=== PATIENT | female | born 1990 | race American Indian/Alaskan Native ===

== ENCOUNTER 2018-01-19 20:45 | Emergency (ER) | payer OTHER ==
[2018-01-19 21:51] LABS: Basophils % (Auto) 0.4 % (0.0-1.8); Eosinophils # (Auto) 0.2 K/mm3 (0.0-0.4); Eosinophils % (Auto) 2.3 % (0.0-4.3); Hematocrit 31.6 % (30.3-42.9); Lymphocytes # (Auto) 2.3 K/mm3 (1.2-5.4); Lymphocytes % (Auto) 22.7 % (13.4-35.0); Mean Corpuscular HGB Conc 35 % (30-34); Mean Corpuscular Volume 71 fl (79-97); Monocytes # (Auto) 0.7 K/mm3 (0.0-0.8); Monocytes % (Auto) 6.7 % (0.0-7.3); Platelet Count 180 K/mm3 (140-440); Red Blood Count 4.47 M/mm3 (3.65-5.03); Red Cell Distribution Width 15.1 % (13.2-15.2)
[2018-01-19 21:53] LABS: Mean Corpuscular Hemoglobin 25 pg (28-32)
[2018-01-19 22:20] LABS: Alanine Aminotransferase 7 units/L (7-56); Albumin 3.9 g/dL (3.9-5); BUN/Creatinine Ratio 13; Blood Urea Nitrogen 9 mg/dL (7-17); Calcium 8.8 mg/dL (8.4-10.2); Hemolysis Index 5
[2018-01-19 23:42] LABS: Bacteria,Urine 1+ /HPF (Negative); Bilirubin,Urine NEG (Negative); Blood,Urine NEG (Negative); Color,Urine Yellow (Yellow); Mucus,Urine FEW /HPF
--- NOTE | 2018-01-20 01:39 | Ultrasound Report ---
FINAL REPORT EXAM: US OB < = 14 WEEKS FETUS HISTORY: abd pain TECHNIQUE: Transabdominal imaging was obtained of the pelvis. Doppler interrogation of the uterus was also obtained. FINDINGS: The uterus is anteverted measuring 14 cm x 9 cm x 8 cm. Within the uterus is a well-formed gestational sac containing an embryo with a crown-rump length of 77.4 mm. This corresponds to a 13 week 5 day IUP. The heart rate is 163 BPM. There is no evidence of subchorionic hemorrhage. Free fluid is not seen in the pelvis. The right ovary is appropriate size contour and echotexture measuring 3.5 cm x 1.9 cm x 2.1 cm. The left ovary measures 3.6 cm x 2.2 cm x 3.2 cm. There is a complex cyst in left ovary measuring up to 2.7 cm in diameter. IMPRESSION: Single viable IUP, 13 weeks 5 days. The heart rate is 163 BPM. Complex cyst in left ovary measuring 2.7 cm in diameter most likely representing corpus luteum cyst.
--- NOTE | 2018-01-20 02:26 | Emergency Department Report ---
ED Abdominal Pain HPI - General Chief Complaint: Abdominal Pain Stated Complaint: 3MNTS ABDOMINAL PAIN Time Seen by Provider: 01/20/18 02:24 Source: patient Mode of arrival: Ambulatory Limitations: No Limitations - History of Present Illness Initial Comments: 27-year-old presents to the hospital with her fourth complaining of sudden onset of suprapubic abdominal pain feels like contractions since last night. Pain was described as 6/10 in intensity, stabbing and cramping and worse with palpation. Pain has eased up some but still present. Patient noticed pink vaginal spotting that resolved spontaneously. Patient had ongoing nausea vomiting during this but symptoms improved with Zofran intake. 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 She denies dysuria or fevers. Her blood type is unknown. [facility]: [facility] - Related Data Previous Rx's Medication Instructions Recorded Last Taken Type Sulfamethoxazole/Trimethoprim 1 each PO BID #10 tablet 03/22/15 Unknown Rx [Bactrim DS TAB] Nitrofurantoin Monohyd/M-Cryst 100 mg PO BID #14 capsule 01/20/18 Unknown Rx [Macrobid 100 mg Capsule] Allergies Allergy/AdvReac Type Severity Reaction Status Date / Time No Known Allergies Allergy Unverified 03/22/15 17:18 ED Review of Systems ROS: Stated complaint: 3MNTS ABDOMINAL PAIN Other details as noted in HPI Comment: All other systems reviewed and negative ED Past Medical Hx - Past Medical History Previous Medical History?: No - Surgical History Past Surgical History?: No - Social History Smoking Status: Former Smoker Substance Use Type: None - Medications Home Medications: Home Medications Medication Instructions Recorded Confirmed Last Taken Type Sulfamethoxazole/Trimethoprim 1 each PO BID #10 tablet 03/22/15 Unknown Rx [Bactrim DS TAB] Nitrofurantoin Monohyd/M-Cryst 100 mg PO BID #14 capsule 01/20/18 Unknown Rx [Macrobid 100 mg Capsule] ED Physical Exam - General Limitations: No Limitations - Other Other exam information: General: No limitations, patient is alert in no acute distress Head exam: Atraumatic, normocephalic Eyes exam: Normal appearance ENT: Moist mucous membrane, normal oropharynx Neck exam: Normal inspection, full range of motion, no meningismus nontender Respiratory exam: Clear to auscultation bilateral, no wheezes, rales, crackles Cardiovascular: Normal rate and rhythm, normal heart sounds Abdomen: Soft, nondistended, superpubic tenderness, with normal bowel sounds, no rebound, or guarding Extremity: Full range of motion normal inspection no deformity Back: Normal Inspection, full range of motion, no tenderness Neurologic: Alert, oriented x3, cranial nerves intact, no motor or sensory deficit Psychiatric: normal affect, normal mood Skin: Warm, dry, intact ED Course Vital Signs 01/19/18 01/20/18 21:10 03:29 Temperature 98.3 F Pulse Rate 78 71 Respiratory 14 18 Rate Blood Pressure 123/73 Blood Pressure 116/70 [Right] O2 Sat by Pulse 100 100 Oximetry ED Medical Decision Making - Lab Data Result diagrams: 01/19/18 21:30 01/19/18 21:30 Lab Results 01/19/18 01/19/18 01/19/18 Range/Units 21:30 21:30 21:30 WBC 10.2 (4.5-11.0) K/mm3 RBC 4.47 (3.65-5.03) M/mm3 Hgb 11.0 (10.1-14.3) gm/dl Hct 31.6 (30.3-42.9) % MCV 71 L (79-97) fl MCH 25 L (28-32) pg MCHC 35 H (30-34) % RDW 15.1 (13.2-15.2) % Plt Count 180 (140-440) K/mm3 Lymph % (Auto) 22.7 (13.4-35.0) % [place] % (Auto) 6.7 (0.0-7.3) % Eos % (Auto) 2.3 (0.0-4.3) % Baso % (Auto) 0.4 (0.0-1.8) % Lymph # 2.3 (1.2-5.4) K/mm3 [place] # 0.7 (0.0-0.8) K/mm3 Eos # 0.2 (0.0-0.4) K/mm3 Baso # 0.0 (0.0-0.1) K/mm3 Seg Neutrophils % 67.9 (40.0-70.0) % Seg Neutrophils # 6.9 (1.8-7.7) K/mm3 Sodium 138 (137-145) mmol/L Potassium 4.0 (3.6-5.0) mmol/L Chloride 104.0 (98-107) mmol/L Carbon Dioxide 23 (22-30) mmol/L Anion Gap 15 mmol/L BUN 9 (7-17) mg/dL Creatinine 0.7 (0.7-1.2) mg/dL Estimated GFR > 60 ml/min BUN/Creatinine Ratio 13 % Glucose 98 (65-100) mg/dL Calcium 8.8 (8.4-10.2) mg/dL Total Bilirubin 0.30 (0.1-1.2) mg/dL AST 19 (5-40) units/L ALT 7 (7-56) units/L Alkaline Phosphatase 33 L (35-129) units/L Total Protein 6.4 (6.3-8.2) g/dL Albumin 3.9 (3.9-5) g/dL Albumin/Globulin Ratio 1.6 % HCG, Quant 60042 H (0-4) mIU/mL Urine Color (Yellow) Urine Turbidity (Clear) Urine pH (5.0-7.0) Ur Specific [place] (1.003-1.030) Urine Protein (Negative) mg/dL Urine Glucose (UA) (Negative) mg/dL Urine Ketones (Negative) mg/dL Urine Blood (Negative) Urine Nitrite (Negative) Urine Bilirubin (Negative) Urine Urobilinogen (<2.0) mg/dL Ur Leukocyte Esterase (Negative) Urine WBC (Auto) (0.0-6.0) /HPF Urine RBC (Auto) (0.0-6.0) /HPF U Epithel Cells (Auto) (0-13.0) /HPF Urine Bacteria (Auto) (Negative) /HPF Urine Mucus /HPF Blood Type 01/19/18 01/20/18 Range/Units 22:23 02:58 WBC (4.5-11.0) K/mm3 RBC (3.65-5.03) M/mm3 Hgb (10.1-14.3) gm/dl Hct (30.3-42.9) % MCV (79-97) fl MCH (28-32) pg MCHC (30-34) % RDW (13.2-15.2) % Plt Count (140-440) K/mm3 Lymph % (Auto) (13.4-35.0) % [place] % (Auto) (0.0-7.3) % Eos % (Auto) (0.0-4.3) % Baso % (Auto) (0.0-1.8) % Lymph # (1.2-5.4) K/mm3 [place] # (0.0-0.8) K/mm3 Eos # (0.0-0.4) K/mm3 Baso # (0.0-0.1) K/mm3 Seg Neutrophils % (40.0-70.0) % Seg Neutrophils # (1.8-7.7) K/mm3 Sodium (137-145) mmol/L Potassium (3.6-5.0) mmol/L Chloride (98-107) mmol/L Carbon Dioxide (22-30) mmol/L Anion Gap mmol/L BUN (7-17) mg/dL Creatinine (0.7-1.2) mg/dL Estimated GFR ml/min BUN/Creatinine Ratio % Glucose (65-100) mg/dL Calcium (8.4-10.2) mg/dL Total Bilirubin (0.1-1.2) mg/dL AST (5-40) units/L ALT (7-56) units/L Alkaline Phosphatase (35-129) units/L Total Protein (6.3-8.2) g/dL Albumin (3.9-5) g/dL Albumin/Globulin Ratio % HCG, Quant (0-4) mIU/mL Urine Color Yellow (Yellow) Urine Turbidity Cloudy (Clear) Urine pH 6.0 (5.0-7.0) Ur Specific [place] 1.024 (1.003-1.030) Urine Protein 30 mg/dl (Negative) mg/dL Urine Glucose (UA) Neg (Negative) mg/dL Urine Ketones Neg (Negative) mg/dL Urine Blood Neg (Negative) Urine Nitrite Neg (Negative) Urine Bilirubin Neg (Negative) Urine Urobilinogen 2.0 (<2.0) mg/dL Ur Leukocyte Esterase Sm (Negative) Urine WBC (Auto) 18.0 H (0.0-6.0) /HPF Urine RBC (Auto) 4.0 (0.0-6.0) /HPF U Epithel Cells (Auto) 15.0 H (0-13.0) /HPF Urine Bacteria (Auto) 1+ (Negative) /HPF Urine Mucus Few /HPF Blood Type A POSITIVE - Radiology Data Radiology results: report reviewed FINAL REPORT EXAM: US OB lt; = 14 WEEKS FETUS HISTORY: abd pain TECHNIQUE: Transabdominal imaging was obtained of the pelvis. Doppler interrogation of the uterus was also obtained. FINDINGS: The uterus is anteverted measuring 14 cm x 9 cm x 8 cm. Within the uterus is a well-formed gestational sac containing an embryo with a crown-rump length of 77.4 mm. This corresponds to a 13 week 5 day IUP. The heart rate is 163 BPM. There is no evidence of subchorionic hemorrhage. Free fluid is not seen in the pelvis. The right ovary is appropriate size contour and echotexture measuring 3.5 cm x 1.9 cm x 2.1 cm. The left ovary measures 3.6 cm x 2.2 cm x 3.2 cm. There is a complex cyst in left ovary measuring up to 2.7 cm in diameter. IMPRESSION: Single viable IUP, 13 weeks 5 days. The heart rate is 163 BPM. Complex cyst in left ovary measuring 2.7 cm in diameter most likely representing corpus luteum cyst. - Medical Decision Making Suprapubic cramps pt feeling better Ultrasound shows normal progression of with IUP UA reveals white cells with epithelial cells patient will be treated. Received Rocephin in the ED Patient reports pink spotting that resolved. She is Rh+ and does not require RhoGAM Nausea vomiting throughout Patient received 1 L of normal saline in the ED - Differential Diagnosis dehydration, UTI, miscarriage, threatened miscarriage Critical Care Time: No Critical care attestation.: If time is entered above; I have spent that time in minutes in the direct care of this critically ill patient, excluding procedure time. ED Disposition Clinical Impression: 13 weeks gestation of , Pelvic cramping, UTI (urinary tract infection) , Nausea and vomiting during , Blood type A+ Disposition: DC-01 TO HOME OR SELFCARE Is pt being admited?: No Does the pt Need Aspirin: No Condition: Stable Instructions: (ED), Urinary Tract Infection in Women (ED) Additional Instructions: Take the medication as prescribed. Follow up with your doctor. Return if symptoms worsen as indicated by your discharge instructions. Take Tylenol as needed for pain. Prescriptions: Nitrofurantoin Monohyd/M-Cryst [Macrobid 100 mg Capsule] 100 mg PO BID #14 capsule Referrals: [facility] [Provider Group] - 2-3 Days Time of Disposition: 04:31
[2018-01-20] MEDS ORDERED: NACL 0.9% 1000 ML 1,000 ML IV ONE (02:48)
[2018-01-20] MEDS ORDERED: ROCEPHIN/NS 1 GM/50 ML 1 GM/50 ML BAG IV ONE (02:48)
[2018-01-20] MEDS ORDERED: TYLENOL ONE (03:09)
[2018-01-20 03:29] VITALS: BP 116/70
[2018-01-20] MEDS ORDERED: TYLENOL PO ONE (06:50)
== END 2018-01-20 04:56 | disposition home or self-care (01) ==
LOC: ED 20:45
DX: O23.41 Unspecified infection of urinary tract in pregnancy, first trimester (principal); Z3A.13 13 weeks gestation of pregnancy; Z87.891 Personal history of nicotine dependence
CPT/HCPCS: 36415; 76801; 80053; 81001; 84702; 85025; 86850; 86900; 86901; 96365; 99284; J0696; J7030

== ENCOUNTER 2018-06-06 20:58 | Inpatient (IN) | payer OTHER ==
[2018-06-06] MEDS ORDERED: LACTATED RINGERS 1,000 ML IV ONE (21:31)
[2018-06-06 22:15] LABS: Bilirubin,Urine NEG (Negative); Blood,Urine NEG (Negative); Color,Urine Yellow (Yellow); Mucus,Urine FEW /HPF; Protein,Urine <15 mg/dL mg/dL (Negative); Urobilinogen,Urine < 2.0 mg/dL (<2.0)
[2018-06-07 01:14] LABS: Basophils % (Auto) 0.3 % (0.0-1.8); Eosinophils # (Auto) 0.2 K/mm3 (0.0-0.4); Eosinophils % (Auto) 1.7 % (0.0-4.3); Hematocrit 29.2 % (30.3-42.9); Hemoglobin 9.5 gm/dl (10.1-14.3); Lymphocytes # (Auto) 2.4 K/mm3 (1.2-5.4); Lymphocytes % (Auto) 21.5 % (13.4-35.0); Mean Corpuscular HGB Conc 32 % (30-34); Mean Corpuscular Volume 70 fl (79-97); Monocytes % (Auto) 9.1 % (0.0-7.3); Platelet Count 176 K/mm3 (140-440); Red Blood Count 4.16 M/mm3 (3.65-5.03); Red Cell Distribution Width 13.8 % (13.2-15.2)
[2018-06-07] MEDS ORDERED: TYLENOL PO PRN (02:06)
[2018-06-07] MEDS: LACTATED RINGERS 1,000 ML IV SCH ×3 (02:27→18:33)
[2018-06-07] MEDS: DECADRON IM SCH ×2 (02:27→09:01)
[2018-06-07] MEDS ORDERED: COLACE PO PRN (10:17)
[2018-06-07] MEDS ORDERED: MAGNESIUM SULFATE 4GM/100ML 4 GM/100 ML BAG IV ONE (10:22)
--- NOTE | 2018-06-07 10:27 | History and Physical Report ---
History of Present Illness Date of examination: 06/07/18 Date of admission: 06/07/18 02:05 Chief complaint: SIUP at 32 weeks gestation with labor. History of present illness: Patient is a 27 year old , LMP 10/21/17, EDC 07/28/18 at 32 weeks and 5 days gestation who presented to triage last night complaining of having contractions. She denied any fluid leakage or bleeding. She reports good movement. She has a history of deliveries at 23 weeks and 35 weeks. She is co-managed with [facility]. tracing is CAT1. Dexa for FLM was started during the night. IV hydration was given. Her contractions later stopped. 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 History: abnormal PAP smear Family/Genetic History: none Social history: no significant social history - Obstetrical History Expected Date of Delivery: 07/28/18 Actual Gestation: 32 Week(s) 5 Day(s) : 3 Para: 2 Hx # Term Pregnancies: 0 Number of Pregnancies: 2 Number of Living Children: 2 Medications and Allergies Allergies Allergy/AdvReac Type Severity Reaction Status Date / Time No Known Allergies Allergy Unverified 03/22/15 17:18 Home Medications Medication Instructions Recorded Confirmed Last Taken Type Vit,Calc76/Iron/Folic 1 each PO DAILY 06/06/18 06/06/18 06/06/18 History [Pnv 29-1 Tablet] Active Meds: Active Medications Acetaminophen (Tylenol) 650 mg PO Q6H PRN PRN Reason: Pain, Mild (1-3) Last Admin: 06/07/18 02:26 Dose: 650 mg Documented by: Acetaminophen (Tylenol) 650 mg PO Q4H PRN PRN Reason: Pain MILD(1-3)/Fever >100.5/HUGGINS Dexamethasone (Decadron) 6 mg IM Q12H DOROTEO Stop: 06/08/18 13:01 Last Admin: 06/07/18 09:01 Dose: 6 mg Documented by: Docusate Sodium (Colace) 100 mg PO Q12H PRN PRN Reason: Constipation Lactated Ringer's (Lactated Ringers) 1,000 mls @ 125 mls/hr IV DIRECT DOROTEO Last Admin: 06/07/18 02:27 Dose: 125 mls/hr Documented by: Ampicillin Sodium (Ampicillin/Ns 1 Gm/50 Ml) 1 gm in 50 mls @ 100 mls/hr IV Q4HR DOROTEO; Protocol Magnesium Sulfate (Magnesium Sulfate 40gm/1000ml) 40 gm in 1,000 mls @ 50 mls/hr IV DIRECT DOROTEO Magnesium Sulfate (Magnesium Sulfate 4gm/100ml) 4 gm in 100 mls @ 300 mls/hr IV ONCE ONE Stop: 06/07/18 10:41 Multivitamins/Iron/Calcium ( Vitamin) 1 each PO QDAY DOROTEO - Vital Signs Vital signs: Vital Signs Pulse Pulse Ox 87 100 06/06/18 21:19 06/06/18 21:19 Temp Pulse Resp BP Pulse Ox 98.7 F 93 H 17 128/84 98 06/07/18 09:08 06/07/18 09:08 06/07/18 09:08 06/07/18 09:08 06/07/18 09:08 - Physical Exam Cardiovascular: Normal S1, Normal S2 Lungs: Positive: Clear to auscultation Vulva: both: normal Adnexa: both: normal Deep Tendon Reflex Grade: Normal +2 - Obstetrical FHR: category 1 Uterine Contraction Monitor Mode: External Cervical Dilatation: 3 Cervical Effacement Percentage: 50 station: -3 Uterine Contraction Pattern: Absent Results Result Diagrams: 06/07/18 12:51 Abnormal lab results 06/07/18 Range/Units 00:39 Hgb 9.5 L (10.1-14.3) gm/dl Hct 29.2 L (30.3-42.9) % MCV 70 L (79-97) fl MCH 23 L (28-32) pg [place] % (Auto) 9.1 H (0.0-7.3) % [place] # 1.0 H (0.0-0.8) K/mm3 All other labs normal. Assessment and Plan - Patient Problems (1) 32 weeks gestation of Current Visit: Yes Status: Acute (2) labor Current Visit: Yes Status: Acute Plan to address problem: Admit to labor floor. Routine admitting labs. IV hydration. and toco monitoring. Magnesium sulfate for neuroprotection. Steroids for FLM. IV antibiotics for GBS prophylaxis. Sonogram for BPP, ARGENIS, EFW. NICU and [facility] consult.
[2018-06-07] MEDS ORDERED: AMPICILLIN/NS 2 GM/100 ML 2 GM/100 ML BAG IV ONE (11:11)
[2018-06-07] MEDS: MAGNESIUM SULFATE 40GM/1000ML 40 GM/1,000 ML BAG IV SCH (11:40)
[2018-06-07] MEDS: PROCARDIA*For Tocolysis only PO SCH ×2 (12:00→18:19)
[2018-06-07 13:26] LABS: Hematocrit 29.2 % (30.3-42.9); Hemoglobin 9.6 gm/dl (10.1-14.3); Mean Corpuscular HGB Conc 33 % (30-34); Platelet Count 195 K/mm3 (140-440); Red Blood Count 4.22 M/mm3 (3.65-5.03); Red Cell Distribution Width 13.6 % (13.2-15.2)
[2018-06-07 13:27] LABS: Mean Corpuscular Volume 69 fl (79-97)
[2018-06-07 14:45] LABS: Basophils % (Manual) 0 % (0.0-1.8); Eosinophils % (Manual) 0 % (0.0-4.3); Monocytes % (Manual) 0 % (0.0-7.3); Total Cells Counted 100
[2018-06-07 14:46] LABS: Anisocytosis 1+; Platelet Estimate Consistent w Auto; Poikilocytosis 1+; Target Cells Few
--- NOTE | 2018-06-07 14:51 | Ultrasound Report ---
ULTRASOUND BIOPHYSICAL PROFILE: History: labor Technique: Transabdominal ultrasound with Doppler interrogation. 2 - breathing movements 2 - movements 2 - posture and tone 2 - Qualitative amniotic fluid volume 8 - TOTAL SCORE OF POSSIBLE 8 Heart Rate (bpm) 124
--- NOTE | 2018-06-07 14:53 | Ultrasound Report ---
OB ULTRASOUND History labor. Technique: Transabdominal ultrasound with Doppler interrogation. Gestation: Single Position: Cephalic Amniotic Fluid: Normal ARGENIS = 14.7 cm Heart Rate: 120 BPM BPD: 8.2 cm = 32 w 6 d HC: 29.6 cm = 32 w 5 d AC: 27.0 cm = 31 w 0 d FL: 6.5 cm = 33 w 4 d HC/AC Ratio: 1.10 Cephalic Index: 89.3 Estimated Weight: 1914 grams Clinical age = 32 w 5 d EDC: 07/28/18 US Gest. Age = 32 w 4 d EDC: 07/29/18 IMPRESSION: Viable, single intrauterine as described.
[2018-06-07] MEDS: TYLENOL PO PRN ×2 (18:17→22:09)
[2018-06-07] MEDS: AMPICILLIN/NS 1 GM/50 ML 1 GM/50 ML BAG IV SCH (18:24)
[2018-06-07 19:29] LABS: Bacteria,Urine 1+ /HPF (Negative); Bilirubin,Urine NEG (Negative); Blood,Urine SM (Negative); Color,Urine Colorless (Yellow); Protein,Urine <15 mg/dL mg/dL (Negative); Urobilinogen,Urine < 2.0 mg/dL (<2.0); WBC,Urine < 1.0 /HPF (0.0-6.0)
[2018-06-08] MEDS: MAGNESIUM SULFATE 40GM/1000ML 40 GM/1,000 ML BAG IV SCH (02:09)
[2018-06-08] MEDS: DECADRON IM SCH ×2 (02:10→14:10)
[2018-06-08] MEDS: AMPICILLIN/NS 1 GM/50 ML 1 GM/50 ML BAG IV SCH ×5 (03:53→22:10)
[2018-06-08] MEDS: PROCARDIA*For Tocolysis only PO SCH ×3 (06:41→22:09)
[2018-06-08] MEDS: PRENATAL VITAMIN PO SCH (09:46)
--- NOTE | 2018-06-08 10:03 | Progress Note ---
Assessment and Plan - Patient Problems (1) 32 weeks gestation of Current Visit: Yes Status: Acute (2) labor Current Visit: Yes Status: Acute Plan to address problem: IV hydration. and toco monitoring. Magnesium sulfate for neuroprotection. Steroids for FLM. IV antibiotics for GBS prophylaxis. NICU and [facility] consult. Subjective - Subjective Date of service: 06/08/18 Principal diagnosis: SIUP at 32 weeks gestation with pretrm labor. Interval history: Patient is a 27 year old , LMP 10/21/17, EDC 07/28/18 at 32 weeks and 6 days gestation who was admitted yesterdasy for labor. She denied any fluid leakage or bleeding. She reports good movement. She has a history of deliveries at 23 weeks and 35 weeks. She is co- managed with [facility]. tracing is CAT1. Dexa for FLM in progress. Magnesium sulfate for neuroprotection, IV antibiotics for GBS prophylaxis. Sonogram showed normal ARGENIS, VTX presentation. Objective - Vital Signs Vital Signs: Vital Signs - 12hr 06/08/18 06/08/18 06/08/18 01:34 04:26 04:27 Temperature 98.3 F Pulse Rate 97 H 97 H Respiratory 18 Rate Blood Pressure 120/73 107/65 - Exam Cardiovascular: Normal S1, Normal S2 Lungs: Clear to auscultation Vulva: both: normal FHR: category 1 Uterine Contraction Monitor Mode: External Uterine Contraction Pattern: Absent Deep Tendon Reflex Grade: Normal +2 - Labs Labs: Abnormal Labs 06/07/18 06/07/18 06/07/18 00:39 12:51 12:51 WBC 13.3 H Hgb 9.5 L 9.6 L Hct 29.2 L 29.2 L MCV 70 L 69 L MCH 23 L 23 L [place] % (Auto) 9.1 H [place] # 1.0 H Seg Neuts % (Manual) 94.0 H Lymphocytes % (Manual) 6.0 L Seg Neutrophils # Man 12.5 H Lymphocytes # (Manual) 0.8 L Magnesium 4.20 H 06/07/18 17:55 WBC Hgb Hct MCV MCH [place] % (Auto) [place] # Seg Neuts % (Manual) Lymphocytes % (Manual) Seg Neutrophils # Man Lymphocytes # (Manual) Magnesium 4.80 H Laboratory Results - last 24 hr 06/07/18 06/07/18 06/07/18 12:51 12:51 17:55 WBC 13.3 H RBC 4.22 Hgb 9.6 L Hct 29.2 L MCV 69 L MCH 23 L MCHC 33 RDW 13.6 Plt Count 195 Add Manual Diff Complete Total Counted 100 Seg Neutrophils % Children'S Counselor Seg Neuts % (Manual) 94.0 H Band Neutrophils % 0 Lymphocytes % (Manual) 6.0 L Reactive Lymphs % (Man) 0 Monocytes % (Manual) 0 Eosinophils % (Manual) 0 Basophils % (Manual) 0 Metamyelocytes % 0 Myelocytes % 0 Promyelocytes % 0 Blast Cells % 0 Nucleated RBC % Not Reportable Seg Neutrophils # Man 12.5 H Band Neutrophils # 0.0 Lymphocytes # (Manual) 0.8 L Abs React Lymphs (Man) 0.0 Monocytes # (Manual) 0.0 Eosinophils # (Manual) 0.0 Basophils # (Manual) 0.0 Metamyelocytes # 0.0 Myelocytes # 0.0 Promyelocytes # 0.0 Blast Cells # 0.0 WBC Morphology Not Reportable Hypersegmented Neuts Not Reportable Hyposegmented Neuts Not Reportable Hypogranular Neuts Not Reportable Smudge Cells Not Reportable Toxic Granulation Not Reportable Toxic Vacuolation Not Reportable Dohle Bodies Not Reportable Pelger-Huet Anomaly Not Reportable [place] Rods Not Reportable Platelet Estimate Consistent w auto Clumped Platelets Not Reportable Plt Clumps, EDTA Not Reportable Large Platelets Not Reportable Giant Platelets Not Reportable Platelet Satelliting Not Reportable Plt Morphology Comment Not Reportable RBC Morphology Not Reportable Dimorphic RBCs Not Reportable Polychromasia Not Reportable Hypochromasia Not Reportable Poikilocytosis 1+ Anisocytosis 1+ Microcytosis Not Reportable Macrocytosis Not Reportable Spherocytes Not Reportable Pappenheimer Bodies Not Reportable Sickle Cells Not Reportable Target Cells Few Tear Drop Cells Not Reportable Ovalocytes Not Reportable Helmet Cells Not Reportable Penaloza-Dundas Bodies Not Reportable [place] Rings Not Reportable [place] Cells Not Reportable Bite Cells Not Reportable Crenated Cell Not Reportable Elliptocytes Not Reportable Acanthocytes (Spur) Not Reportable Rouleaux Not Reportable Hemoglobin C Crystals Not Reportable Schistocytes Not Reportable Malaria parasites Not Reportable Pedro Bodies Not Reportable Hem Pathologist Commnt No Magnesium 4.20 H 4.80 H Urine Color Urine Turbidity Urine pH Ur Specific [place] Urine Protein Urine Glucose (UA) Urine Ketones Urine Blood Urine Nitrite Urine Bilirubin Urine Urobilinogen Ur Leukocyte Esterase Urine WBC (Auto) Urine RBC (Auto) U Epithel Cells (Auto) Urine Bacteria (Auto) 06/07/18 19:00 WBC RBC Hgb Hct MCV MCH MCHC RDW Plt Count Add Manual Diff Total Counted Seg Neutrophils % Seg Neuts % (Manual) Band Neutrophils % Lymphocytes % (Manual) Reactive Lymphs % (Man) Monocytes % (Manual) Eosinophils % (Manual) Basophils % (Manual) Metamyelocytes % Myelocytes % Promyelocytes % Blast Cells % Nucleated RBC % Seg Neutrophils # Man Band Neutrophils # Lymphocytes # (Manual) Abs React Lymphs (Man) Monocytes # (Manual) Eosinophils # (Manual) Basophils # (Manual) Metamyelocytes # Myelocytes # Promyelocytes # Blast Cells # WBC Morphology Hypersegmented Neuts Hyposegmented Neuts Hypogranular Neuts Smudge Cells Toxic Granulation Toxic Vacuolation Dohle Bodies Pelger-Huet Anomaly [place] Rods Platelet Estimate Clumped Platelets Plt Clumps, EDTA Large Platelets Giant Platelets Platelet Satelliting Plt Morphology Comment RBC Morphology Dimorphic RBCs Polychromasia Hypochromasia Poikilocytosis Anisocytosis Microcytosis Macrocytosis Spherocytes Pappenheimer Bodies Sickle Cells Target Cells Tear Drop Cells Ovalocytes Helmet Cells Penaloza-Dundas Bodies Gardner Rings Topaz Cells Bite Cells Crenated Cell Elliptocytes Acanthocytes (Spur) Rouleaux Hemoglobin C Crystals Schistocytes Malaria parasites Pedro Bodies Hem Pathologist Commnt Magnesium Urine Color Colorless Urine Turbidity Clear Urine pH 7.0 Ur Specific [place] 1.003 Urine Protein <15 mg/dl Urine Glucose (UA) 50 Urine Ketones 20 Urine Blood Sm Urine Nitrite Neg Urine Bilirubin Neg Urine Urobilinogen < 2.0 Ur Leukocyte Esterase Neg Urine WBC (Auto) < 1.0 Urine RBC (Auto) 2.0 U Epithel Cells (Auto) 1.0 Urine Bacteria (Auto) 1+ - Results US- obstetric: report reviewed
[2018-06-08] MEDS ORDERED: DECADRON ONE (15:57)
--- NOTE | 2018-06-08 17:18 | Consultation ---
History of Present Illness Consult date: 06/08/18 Requesting physician: CIELO JENSEN Reason for consult: contractions History of present illness: As you are aware, this is an 27 year old para 0211 patient at EGA= 32 weeks 6 days gestation (based on an LISSY of 07/28/18) who was admitted to the L&D at [facility] due to suspected labor. Patient was noted to have a vaginal exam at 2-3 cm and [facility]. She was noted to be dilated at the time of that evaluation. * She denies fever, nausea, vomiting, vaginal bleeding or fluid leakage per vagina. * She does describe mild intermittent episodes of abdominal discomfort consistent with possible contractions for approximately 2 weeks. At the time of my evaluation today the admitted to intermittent contractions. PAST OBSTERICAL HISTORY: See notes in patients chart. See details in patients chart [facility] ULTRASONOGRAPHY: o See notes in patients chart Physical Examination: See hospital chart for details Recent blood pressures: stable General exam: WDWN, NAD. Abdominal exam: soft, non-tender, non-distended, bowel sounds: normal. Cervical length: deferred (2-3 cm per last exam) [place]: Minimal contractions appreciated at present. Admission labs: o See notes in patients chart Past History Past Surgical History: [employer] History: abnormal PAP smear Family/Genetic History: none - Obstetrical History : 3 Medications and Allergies Allergies Allergy/AdvReac Type Severity Reaction Status Date / Time No Known Allergies Allergy Unverified 03/22/15 17:18 Home Medications Medication Instructions Recorded Confirmed Last Taken Type Vit,Calc76/Iron/Folic 1 each PO DAILY 06/06/18 06/06/18 06/06/18 History [Pnv 29-1 Tablet] Active Meds: Active Medications Acetaminophen (Tylenol) 650 mg PO Q4H PRN PRN Reason: Pain MILD(1-3)/Fever >100.5/HUGGINS Last Admin: 06/07/18 22:09 Dose: 650 mg Documented by: Docusate Sodium (Colace) 100 mg PO Q12H PRN PRN Reason: Constipation Lactated Ringer's (Lactated Ringers) 1,000 mls @ 125 mls/hr IV DIRECT DOROTEO Last Admin: 06/07/18 18:33 Dose: 125 mls/hr Documented by: Ampicillin Sodium (Ampicillin/Ns 1 Gm/50 Ml) 1 gm in 50 mls @ 100 mls/hr IV Q4HR [facility]; Protocol Last Admin: 06/08/18 14:15 Dose: 100 mls/hr Documented by: Magnesium Sulfate (Magnesium Sulfate 40gm/1000ml) 40 gm in 1,000 mls @ 50 mls/hr IV DIRECT [facility] Last Admin: 06/08/18 02:09 Dose: 2 gm/hr, 50 mls/hr Documented by: Multivitamins/Iron/Calcium ( Vitamin) 1 each PO QDAY [facility] Last Admin: 06/08/18 09:46 Dose: 1 each Documented by: Nifedipine (Procardia*For Tocolysis Only*) 10 mg PO Q6HR [facility] Last Admin: 06/08/18 12:33 Dose: Not Given Documented by: - Vital Signs Vital signs: Vital Signs Pulse Pulse Ox 87 100 06/06/18 21:19 06/06/18 21:19 Temp Pulse Resp BP Pulse Ox 98.7 F 90 18 123/79 97 06/08/18 10:10 06/08/18 10:22 06/08/18 10:10 06/08/18 10:22 06/08/18 10:10 Results Result Diagrams: 06/07/18 12:51 Abnormal lab results 06/07/18 06/08/18 Range/Units 17:55 10:45 Magnesium 4.80 H 4.70 H (1.7-2.3) mg/dL All other labs normal. Assessment and Plan ASSESSMENT: o Intrauterine at 32 weeks gestation admitted with contractions and cervical change o Currently, an analysis of this patients symptoms, tocodynametry, past history and stated symptoms place her at significant risk for spontaneous . RECOMMENDATIONS & CONSULTATION: 1. Agree with admission to [facility] 2. During the initial stages of admission this patient should receive MgSo4 tocolysis and observation if she is noted to have uterine contractions. 3. DISCONTINUE magnesium sulfate presently 4. In the absence of regular uterine activity we would recommend oral tocolysis with Procardia is advisable; however this patient describes headaches with Procardia. 5. The alternative would be NO medications for tocolysis following discontinuation of magnesium sulfate. 6. Patient has previously received steroids an there is no indication for a rescue dose at this time. 7. Heart Assessment via NST q shift 8. Continuous uterine tocodynametry while admitted 9. DC IV presently 10. Instruct nurses to call M.D. for > 6 contractions per hour 11. Instruct nurses to call M.D. for any of the following: a. Temp > 101 b. Acute onset abdominal pain, c. Vaginal bleeding or d. Rupture of membranes e. Acute pulmonary symptoms (shortness of breath, dyspnea, hemoptysis) 12. If patient remains stable following completion of steroids and when placed on oral tocolytics (or NO tocolysis) it may be advisable to consider discharge home for outpatient care and bedrest in anticipation of prolongation. Thank you for allowing us to participate in the care of this patient. We look forward to the opportunity to assist in her continued management. If you have any questions, please contact our office at [phone]. Johanna Vargas M.D.
[2018-06-08] MEDS: TYLENOL PO PRN (17:26)
[2018-06-08] MEDS: LACTATED RINGERS 1,000 ML IV SCH (17:37)
[2018-06-09] MEDS: AMPICILLIN/NS 1 GM/50 ML 1 GM/50 ML BAG IV SCH ×3 (02:15→09:52)
[2018-06-09] MEDS: PROCARDIA*For Tocolysis only PO SCH (06:04)
[2018-06-09] MEDS: PRENATAL VITAMIN PO SCH (09:53)
--- NOTE | 2018-06-09 10:33 | Event Note ---
S: Patient denies contractions. She reports good movement. She denies loss of fluid or vaginal bleeding. She states she has no headaches while taking Procardia. O: Cervix 40/-4 FHT Category I [place]: no contractions A 27yo negative fFN No signs of labor or cervical change s/p dexamethasone Anemia of P Dulce Maria injection before discharge Stop GBS prophylaxis Discharge home with PTL precautions, Procardia, Iron F/U in clinic 1 week
--- NOTE | 2018-06-09 10:43 | Discharge Summary ---
Providers - Providers Date of Admission: 06/08/18 09:53 Attending physician: CIELO JENSEN MD Primary care physician: CIELO JENSEN MD Hospitalization Reason for admission: labor Delivery: other (UNDELIVERED) Discharge diagnosis: other ( labor, anemia of ) Hospital course: 27yo 33 weeks managed for contractions. She was noted to have no cervical change and negative fibronectin. She was discharged home on Procardia and will resume weekly [place] injections. Her cervix remains 1/40/-4. She received dexamethasone, ampicillin and magnesium sulfate. Condition at discharge: Stable Disposition: DC-01 TO HOME OR SELFCARE - Discharge Diagnoses (1) Anemia affecting Status: Acute (2) 32 weeks gestation of Status: Acute (3) labor Status: Acute Plan - Discharge Medications Prescriptions: Ferrous Sulfate [Feosol 325 MG tab] 325 mg PO QDAY 60 Days #60 tablet NIFEdipine [Procardia] 10 mg PO Q6HR #60 capsule - Provider Discharge Summary Activity: other (no strenuous activity, no sexual activity) Additional instructions: [] Smoking cessation referral if applicable(refer to patient education folder for contact #) [] Refer to [facility]'s [facility] Booklet Call your doctor immediately for: * Fever > 100.5 * Heavy vaginal bleeding ( >1 pad per hour) * Severe persistent headache * Shortness of breath * Reddened, hot, painful area to leg or breast * Drainage or odor from incision. * Keep incision clean and dry at all times and follow doctor's instructions regarding bathing/showering - Follow up plan Follow up: CIELO JENSEN MD [Primary Care Provider] - 7 Days
[2018-06-11 11:26] VITALS: BP 99/56
== END 2018-06-09 11:55 | disposition home or self-care (01) | DRG 778 ==
LOC: TRG 20:58 → LD 06-07 02:05 → OBSVTOIN 06-08 09:53
PROVIDERS: ADMIT Obstetrics & Gynecology; ATTEND Obstetrics & Gynecology
DX: O60.03 Preterm labor without delivery, third trimester (principal); O99.013 Anemia complicating pregnancy, third trimester; D64.9 Anemia, unspecified; Z3A.32 32 weeks gestation of pregnancy
CPT/HCPCS: 36415; 76816; 76819; 81001; 82731; 83735; 85007; 85025; 86850; 86900; 86901; G0378; J0290; J1100; J3475; J7120

== ENCOUNTER 2018-06-14 11:52 | Outpatient (CLI) | payer OTHER | END 2018-06-14 13:22 | disposition left against medical advice (07) | LOC: TRG 11:52 | CPT/HCPCS: 59025 ==

== ENCOUNTER 2018-06-20 12:17 | Outpatient (CLI) | payer OTHER ==
[2018-06-20 12:43] VITALS: BP 120/70
[2018-06-20] MEDS ORDERED: LACTATED RINGERS 500 ML IV ONE (12:44)
[2018-06-20 13:14] LABS: Bilirubin,Urine NEG (Negative); Blood,Urine NEG (Negative); Color,Urine Yellow (Yellow); Mucus,Urine FEW /HPF; Protein,Urine <15 mg/dL mg/dL (Negative); Urobilinogen,Urine < 2.0 mg/dL (<2.0)
== END 2018-06-20 14:16 | disposition home or self-care (01) ==
LOC: TRG 12:17
PROVIDERS: ATTEND Obstetrics & Gynecology
DX: O47.03 False labor before 37 completed weeks of gestation, third trimester (principal); Z3A.34 34 weeks gestation of pregnancy
CPT/HCPCS: 36415; 81001; 82731

== ENCOUNTER 2018-07-10 20:13 | Inpatient (IN) | payer OTHER ==
--- NOTE | 2018-07-11 00:37 | Ultrasound Report ---
PROCEDURE: US OB LIMITED TECHNIQUE: A limited transabdominal OB sonogram was performed for evaluation of ARGENIS. HISTORY: argenis COMPARISONS: 06/07/2018 FINDINGS: The fetus is in cephalic presentation. The heart rate is 162 BPM. ARGENIS is 11.6 cm which is normal. IMPRESSION: ARGENIS is 11.6 cm which is normal.. This document is electronically signed by Cesar Cedeno MD., July 11 2018 12:34:42 AM ET
[2018-07-11] MEDS ORDERED: SUBLIMAZE IV PRN (00:46)
[2018-07-11] MEDS ORDERED: STADOL IV PRN (00:46)
[2018-07-11] MEDS ORDERED: LACTATED RINGERS 1,000 ML IV SCH ×2 (01:00→03:00)
[2018-07-11] MEDS ORDERED: AMPICILLIN/NS 2 GM/100 ML 2 GM/100 ML BAG IV ONE (01:13)
[2018-07-11 01:51] LABS: Hematocrit 30.2 % (30.3-42.9); Hemoglobin 10.1 gm/dl (10.1-14.3); Mean Corpuscular HGB Conc 33 % (30-34); Platelet Count 180 K/mm3 (140-440); Red Blood Count 4.41 M/mm3 (3.65-5.03); Red Cell Distribution Width 14.4 % (13.2-15.2)
[2018-07-11 01:52] LABS: Mean Corpuscular Volume 69 fl (79-97)
--- NOTE | 2018-07-11 02:03 | History and Physical Report ---
History of Present Illness Date of examination: 07/11/18 Date of admission: 07/11/18 01:00 Chief complaint: Contractions, LOF when coughing History of present illness: 27yo G 4 P 0 2 1 1 @ 37 weeks 4 days here with c/o contractions since 8 pm and worsening. She also c/o leaking fluid while coughing. She reports positive movements but denies vaginal bleeding. Nitrazine test negative. ARGENIS 11.6. She is a [employer] patient who initiated care at 7 weeks gestation. Partial records are available and reviewed. Her course is complicated by deliveries; co-managed with [facility], was on weekly [place] injections and taking Procardia for tocolysis as well as anemia (on iron therapy). She was admitted for labor on 06/07/18 and given DEXA series for lungs maturity. GBS is unknown (negative per pt). Past History Past Medical History: hypertension Past Surgical History: no surgical history ACCESS SPEC History: abnormal PAP smear (ASCUS/+HPV) Family/Genetic History: hypertension, stroke, other (Chronic kidney disease) Social history: single, lives with family. denies: smoking, alcohol abuse, prescription drug abuse, IV drug use - Obstetrical History Expected Date of Delivery: 07/28/18 Actual Gestation: 37 Week(s) 4 Day(s) : 4 Para: 1 Hx # Term Pregnancies: 0 Number of Pregnancies: 2 Spontaneous Abortions: 0 Induced : 1 Number of Living Children: 1 #1 Infant Gender: Female year: 2,010 (09/03/2009) Birthweight: 340.194 g (12 oz) Method of Delivery: Vaginal Gestational age at delivery: 23 Complications: other ( labor and delivery) #2 Infant Gender: Female year: 2,011 (02/11/2011) Birthweight: 2.41 kg (5 lbs 5 oz) Method of Delivery: Vaginal Gestational age at delivery: 35 Complications: other ( labor and delivery) Medications and Allergies Allergies Allergy/AdvReac Type Severity Reaction Status Date / Time No Known Allergies Allergy Verified 06/20/18 12:44 Home Medications Medication Instructions Recorded Confirmed Last Taken Type Vit,Calc76/Iron/Folic 1 each PO DAILY 06/06/18 07/11/18 07/10/18 08:00 History [Pnv 29-1 Tablet] Ferrous Sulfate [Feosol 325 MG tab] 325 mg PO QDAY 60 Days #60 tablet 06/09/18 07/11/18 07/10/18 08:00 Rx NIFEdipine [Procardia] 10 mg PO Q6HR #60 capsule 06/09/18 07/11/18 07/10/18 08:00 Rx Active Meds: Active Medications Butorphanol Tartrate (Stadol) 2 mg IV Q2H PRN PRN Reason: Labor Pain Fentanyl (Sublimaze) 100 mcg IV Q2H PRN PRN Reason: Labor Pain Last Admin: 07/11/18 01:37 Dose: 100 mcg Documented by: Lactated Ringer's (Lactated Ringers) 1,000 mls @ 125 mls/hr IV DIRECT DOROTEO Ampicillin Sodium (Ampicillin/Ns 1 Gm/50 Ml) 1 gm in 50 mls @ 100 mls/hr IV Q4HR DOROTEO Stop: 07/11/18 05:59 Ampicillin Sodium (Polycillin/Ns 2 Gm/100 Ml) 2 gm in 100 mls @ 100 mls/hr IV ONCE ONE Stop: 07/11/18 02:12 Review of Systems All systems: negative - Obstetrical FHR: auscultation normal, category 1 FHR comments: baseline 130, moderate variability, 15x15 accels, no decels Uterine Contraction Monitor Mode: External Cervical Dilatation: 5 (per RN) Cervical Effacement Percentage: 60 (per RN) station: -2 (per RN) Uterine Contraction Frequency (min): 1-5 Uterine Contraction Pattern: Regular Results Result Diagrams: 07/11/18 01:32 Abnormal lab results 07/11/18 Range/Units 01:32 Hct 30.2 L (30.3-42.9) % MCV 69 L (79-97) fl MCH 23 L (28-32) pg All other labs normal. Assessment and Plan - Patient Problems (1) 37 weeks gestation of Current Visit: Yes Status: Acute (2) Active labor at term Current Visit: Yes Status: Acute Plan to address problem: Admit to L&D with routine labor orders Start Ampicillin for GBS prophylaxis Start Oxytocin for labor augmentation Anticipate vaginal delivery
[2018-07-11] MEDS ORDERED: XYLOCAINE 2% INFILTRATI ONE (02:45)
[2018-07-11] MEDS ORDERED: BRETHINE IVP PRN (02:45)
[2018-07-11] MEDS ORDERED: BRETHINE SUB-Q PRN (02:45)
[2018-07-11] MEDS ORDERED: MINERAL OIL PO PRN (02:45)
[2018-07-11] MEDS ORDERED: PITOCin/NS 30 UNIT/500ML 30 UNITS/500 ML BAG IV SCH (03:00)
[2018-07-11] MEDS ORDERED: PITOCin/NS 20 UNIT/1000ML DRIP 20 UNITS/1,000 ML BAG IV SCH (03:00)
[2018-07-11] MEDS ORDERED: NARCAN 2 MG/2 ML IV PRN (03:40)
[2018-07-11] MEDS ORDERED: fentaNYL-BUPIV 2 MCG/ML-0.125% 200 MCG/100 ML BAG EPIDURAL SCH (04:00)
[2018-07-11] MEDS ORDERED: AMPICILLIN/NS 1 GM/50 ML 1 GM/50 ML BAG IV SCH (05:30)
--- NOTE | 2018-07-11 06:37 | Event Note ---
Date: 07/11/18 S: Pt in left lateral position. Partner at bedside. Reports satisfactory pain relief post epidural anesthesia. O: FHR baseline 125, moderate variability with periods of minimal to absent variability, + accels, no decels Oxygen via NR mask in place Ctxs q2-8mins, palpate moderate SVE 5/60/-1/vtx/intact Pitocin @ 6 mu/min A: IUP @ 37w4d by LMP Category II FHR AROM @ 06:07, clear fluid, moderate amount P: Continue current management Continue intrauterine resuscitation measures Anticipate vaginal delivery
[2018-07-11] MEDS ORDERED: ZOFRAN IV PRN (08:42)
[2018-07-11] MEDS ORDERED: BENADRYL PO PRN (08:42)
[2018-07-11] MEDS ORDERED: PHENERGAN PR PRN (08:42)
[2018-07-11] MEDS ORDERED: TUCKS PAD TP PRN (08:42)
[2018-07-11] MEDS ORDERED: LANSINOH TP PRN (08:42)
[2018-07-11] MEDS ORDERED: PHENERGAN PO PRN (08:42)
[2018-07-11] MEDS ORDERED: TYLENOL PO PRN (08:42)
--- NOTE | 2018-07-11 08:49 | Procedure Note ---
OB Delivery Note - Delivery Date of Delivery: 07/11/18 (0827) Surgeon: CRYSTAL MILLS (CNM) Estimated blood loss: other (150 cc) - Vaginal Delivery position: OP Intrapartum events: none Delivery induction: none Delivery augmentation: pitocin Delivery monitor: external FHT, external uterine Route of delivery: Delivery placenta: spontaneous Delivery cord: nuchal cord (x 2) Episiotomy: none Delivery laceration: none Anesthesia: epidural Delivery comments: of viable male infant, direct OP with nuchal x 2, reduced at perineum, then placed directly to maternal abdomen. Placenta delivered spontaneously,intact, bang, disposed per hospital policy. Cord blood collected per hospital policy. Intact perineum, hemostasis maintained. Mother and baby stable and bonding well. - Infant A at 1 minute: 8 at 5 minutes: 9 Infant Gender: Female (Weight: 5lbs 13 oz; 18 inches)
[2018-07-11] MEDS ORDERED: SODIUM CHLORIDE FLUSH SYRINGE 10 ML IV NR (09:00)
[2018-07-11] MEDS ORDERED: DULCOLAX PR PRN (10:00)
[2018-07-11] MEDS: IBUPROFEN PO SCH ×3 (10:19→23:33)
[2018-07-11 20:58] LABS: Hemoglobin 8.9 gm/dl (10.1-14.3)
[2018-07-11] MEDS ORDERED: MILK OF MAGNESIA PO PRN (22:00)
--- NOTE | 2018-07-12 10:54 | Progress Note ---
Assessment and Plan A: PP Day #1 Asymptomatic Anemia P: Follow Routine Orders FeSO4 325mg PO BIF; continue at home d/C Home in the AM Plans Mirena IUD for Contraception RTO in 6 weeks Subjective - Subjective Date of service: 07/12/18 Patient reports: appetite normal, voiding normally, pain well controlled, flatus, bowel movement, ambulating normally [place]: doing well, bottle feeding (and ) Objective - Vital Signs Latest vital signs: Vital Signs Temp Pulse Resp BP BP Pulse Ox 07/12/18 07:09 97.4 F L 80 18 121/81 99 07/12/18 00:18 98.4 F 93 H 18 114/72 98 07/11/18 20:39 98.4 F 81 18 109/63 100 07/11/18 16:11 97.8 F 82 18 121/74 100 07/11/18 15:45 20 07/11/18 12:55 97.7 F 83 20 142/93 100 07/11/18 11:20 98.6 F 83 20 138/94 99 Intake and Output 07/11/18 07/12/18 07/12/18 22:59 06:59 14:59 Intake Total 480 360 Output Total 600 Balance -120 360 Intake: Oral 480 360 Output: Urine 600 Void 600 Other: Total, Intake Amount 480 360 Total, Output Amount 600 # Voids Void 2 - Exam Breasts: Present: normal Cardiovascular: Present: Regular rate Lungs: Present: Clear to auscultation, Normal air movement Abdomen: Present: normal appearance, soft, normal bowel sounds Uterus: Present: normal, firm, fundal height below umbilicus Extremities: Present: normal - Labs Labs: Abnormal lab results 07/11/18 Range/Units 19:59 Hgb 8.9 L (10.1-14.3) gm/dl Hct 27.0 L (30.3-42.9) %
--- NOTE | 2018-07-12 10:55 | Discharge Summary ---
Providers - Providers Date of Admission: 07/11/18 01:00 Date of discharge: 07/13/18 Attending physician: JOCELYNE REILLY Primary care physician: JOCELYNE REILLY Hospitalization Reason for admission: rupture of membranes Delivery: Episiotomy: none Laceration: none Other procedures: none complications: none Discharge diagnosis: IUP at term delivered baby: male Condition at discharge: Good Disposition: DC-01 TO HOME OR SELFCARE Plan - Provider Discharge Summary Activity: routine, no sex for 6 weeks, no heavy lifting 4 weeks, no strenuous exercise Diet: routine Instructions: routine Additional instructions: [] Smoking cessation referral if applicable(refer to patient education folder for contact #) [] Refer to [facility]'s [facility] Booklet Call your doctor immediately for: * Fever > 100.5 * Heavy vaginal bleeding ( >1 pad per hour) * Severe persistent headache * Shortness of breath * Reddened, hot, painful area to leg or breast * Drainage or odor from incision. * Keep incision clean and dry at all times and follow doctor's instructions regarding bathing/showering - Follow up plan Follow up: JOCELYNE REILLY MD [Primary Care Provider] - 6 Weeks
[2018-07-12] MEDS: FEOSOL PO SCH ×2 (16:13→22:35)
[2018-07-12] MEDS: IBUPROFEN PO SCH ×2 (16:13→22:35)
[2018-07-13 09:17] VITALS: BP 126/86
== END 2018-07-13 09:25 | disposition home or self-care (01) | DRG 774 ==
LOC: TRG 20:13 → LD 07-11 01:00 → OB 07-11 11:29
PROVIDERS: ADMIT Obstetrics & Gynecology; ATTEND Obstetrics & Gynecology
PROC: 10E0XZZ Delivery of Products of Conception, External Approach (ICD-10-PCS; principal; 2018-07-11)
PROC: 3E0R3BZ Introduction of Anesthetic Agent into Spinal Canal, Percutaneous Approach (ICD-10-PCS; 2018-07-11)
PROC: 00HU33Z Insertion of Infusion Device into Spinal Canal, Percutaneous Approach (ICD-10-PCS; 2018-07-11)
PROC: 10907ZC Drainage of Amniotic Fluid, Therapeutic from Products of Conception, Via Natural or Artificial Opening (ICD-10-PCS; 2018-07-11)
DX: O69.81X0 Labor and delivery complicated by cord around neck, without compression, not applicable or unspecified (principal); O10.92 Unspecified pre-existing hypertension complicating childbirth; O99.02 Anemia complicating childbirth; D64.9 Anemia, unspecified; Z82.49 Family history of ischemic heart disease and other diseases of the circulatory system; Z3A.37 37 weeks gestation of pregnancy; Z37.0 Single live birth; Z82.3 Family history of stroke; Z79.899 Other long term (current) drug therapy
CPT/HCPCS: 36415; 76815; 85014; 85018; 85027; 86592; 86706; 86762; 86850; 86900; 86901; 87806; G0378; A6250; J0290; J2590; J3010; J7120